=== PATIENT | female | born 1975 | race Caucasian/White ===

== ENCOUNTER → 2018-08-20 | Day surgery (SDC) | payer OTHER ==
[~2018-08-20] VITALS: Ht 156.2 cm; Wt 83.0 kg
[~2018-08-20] MED LIST: CEFAZOLIN 1 GM INJ ONE; DESFLURANE 15 MIN ONE; HYDROCODONE/APAP (5/325) TAB PO ONE; HYDROmorphONE 1 MG/5 ML IV SYRINGE IV PRN; LEVO50TA71 PO; LIDOCAINE 2% (SDV) 5 ML INJ ONE; MEPERIDINE 25 MG INJ IV PRN; MIDAZOLAM 1 MG/ML 2 ML INJ ONE; ONDANSETRON 4 MG INJ IV PRN; ONDANSETRON 4 MG INJ ONE; POLYMYXIN/BACITRACIN 1L IRRIG ONE; PROPOFOL 20 ML ONE; ROCURONIUM 50 MG INJ ONE; ROPIVACAINE 0.5 % 30 ML VIAL ONE; SUCCINYLCHOLINE CHLORIDE 100 MG/5 ML SYG IV ONE
[2018-08-20 10:46] VITALS: Ht 156.2 cm; Wt 83.0 kg
[2018-08-20 10:47] VITALS: BP 128/58; PULSE 95; RESP 16
--- NOTE | 2018-08-20 11:53 | PAC ---
Date/Time of Note Date/Time of Note DATE: 08/20/18 TIME: 11:52 Post-Anesthesia Notes Post-Anesthesia Note Last documented vital signs Vital Signs Date Temp Pulse Resp B/P (MAP) Pulse Ox O2 O2 Flow FiO2 Time Delivery Rate 08/20/18 98.0 73 19 126/72 97 Room Air 1153 Activity: WNL Respiratory function: WNL Cardiovascular function: WNL Mental status: Baseline Pain reasonably controlled: Yes Hydration appropriate: Yes Nausea/Vomiting absent: Yes JESSICA FERREIRA DO Aug 20, 2018 11:53
--- NOTE | 2018-08-20 12:02 | PREAC ---
Date/Time of Note Date/Time of Note DATE: 08/20/18 TIME: 12:00 Anesthesia Eval and Record Evaluation Time Pre-Procedure Interview DATE: 08/20/18 TIME: 12:00 Age 42 Sex female NPO: 8 hrs Preoperative diagnosis recurrent incarcerated incisional hernia Planned procedure laproscopic incisional hernia repair Past Medical History Past Medical History: Includes Endo: Hypothyroid GI: Obesity Surgery & Anesthesia Issues No known issue Meds Anticoagulation: No Beta Eron within 24 hr: No Reason Beta Eron not given: Pt. not on B-Eron Reported Medications Levothyroxine Sodium* (Levoxyl*) 50 Mcg Tablet, 50 MCG PO BEFORE BREAKFAST, #30 TAB 08/20/18 Discontinued Reported Medications [none] No Conflict Check 07/09/12 Meds reviewed: Yes Allergies Coded Allergies: No Known Allergy (Unverified , 07/09/12) Allergies Reviewed: Yes Labs/Studies Labs Reviewed: Reviewed by anesthesiologist Result Diagram: 08/20/18 1030 08/20/18 1030 Laboratory Tests 08/20/18 10:30 test: Negative Pre-procedure Exam Last vitals Vital Signs Date Temp Pulse Resp B/P (MAP) Pulse Ox O2 O2 Flow FiO2 Time Delivery Rate 08/20/18 98.0 95 16 128/58 97 Room Air 10:47 (81) Airway: Adequate mouth opening, Adequate thyromental dist Mallampati: Mallampati IV Teeth: Normal Lung: Normal Heart: Normal ASA Physical Status ASA physical status: 2 Emergency: None Pre-operative Attestations Prior to commencing anesthesia and surgery, the patient was re-evaluated, there was verification of: *The patient's identity *The results of appropriate recent lab work and preoperative vital signs *The above evaluation not changing prior to induction *Anesthetic plan, risk benefits, alternative and complications discussed with patient/family; questions answered; patient/family understands, accepts and wishes to proceed. JESSICA FERREIRA DO Aug 20, 2018 12:02
--- NOTE | 2018-08-20 13:08 | OPR ---
Date/Time of Note Date/Time of Note DATE: 08/20/18 TIME: 13:03 Operative Report Procedure Date: Aug 20, 2018 Preoperative Diagnosis recurrent incarcerated incisional hernia Postoperative Diagnosis same Operation/Procedure Performed 1. laparoscopic recurrent incarcerated incisional hernia repair 2. implantation of polypropylene 15 x 15 cm mesh 3. laparoscopic lysis of adhesions Surgeon see signature line Telephone Maintainer Alex Veronica Anesthesia Type: general Estimated Blood Loss: 0 - 10 ml's Transfusion none Specimen none Grafts/Implants none Complications none Pt Condition Post Procedure: stable Indications This is a 42-year-old female with symptomatic incarcerated recurrent incisional hernia. She required surgical repair. Risks alternatives benefits and percent were discussed the patient. Patient expressed understanding and consents to the operation. Procedure Description Patient is taken to the OR and prepped and draped in usual sterile fashion. Surgical time was performed. IV antibiotics were given. Left upper quadrant 5 mm transverse incision was made with a 15 blade. Using a 5 mm optical trocar optical entry is performed. Pneumoperitoneum is established. Left flank 12 mm optical trochars placed under direct visualization. Left lower quadrant 5 mm optical trocar was placed under direct position. Upon initial inspection there is adhesions to the anterior abdominal wall. Lap scopic lysis of adhesions performed to dissect out the adhesions of the way from the anterior abdominal wall. The incarcerated contents were then identified and the fascial edges were identified and careful dissection was made with laparoscopic harmonic. The incarcerated contents were then manually reduced and lysis of adhesions was performed further to allow complete reduction of the contents. The hernia defect was identified and this defect was then closed primarily with interrupted #1 Vicryl using Endo Close and laparoscopic techniques. After primary closure of the defect underlay mesh with a polypropylene 15 x 15 [address] with secure strap. There is approximate 4-5 cm of coverage in all directions. Good hemostasis was reestablished. All ports were removed under direct position. Skin was closed using skin augustine. A tap block was provided by the anesthesiology at the beginning the case. Dry dressings were applied. Felicitas HERNANDEZ Aug 20, 2018 13:08
--- NOTE | 2018-08-20 13:13 | PAC ---
Date/Time of Note Date/Time of Note DATE: 08/20/18 TIME: 13:12 Post-Anesthesia Notes Post-Anesthesia Note Last documented vital signs Vital Signs Date Temp Pulse Resp B/P (MAP) Pulse Ox O2 O2 Flow FiO2 Time Delivery Rate 08/20/18 98.0 75 21 107/63 97 Room Air 1312 Activity: WNL Respiratory function: WNL Cardiovascular function: WNL Mental status: Baseline Pain reasonably controlled: Yes Hydration appropriate: Yes Nausea/Vomiting absent: Yes JESSICA FERREIRA DO Aug 20, 2018 13:13
[2018-08-20 14:25] VITALS: BP 109/63; PULSE 92; RESP 18
== END | disposition home or self-care (01) ==
LOC: SDS 08:58
PROVIDERS: ATTEND Surgery
DX: K43.0 Incisional hernia with obstruction, without gangrene (principal)
CPT/HCPCS: 80053; 85025; 85610; 85730; J0690; J1170; J2250; J2405; J2795; J3010